=== PATIENT | female | born 1945 | race Caucasian/White ===

== ENCOUNTER 2017-04-06 06:23 | Day surgery (SDC) | payer OTHER ==
[2017-03-09 10:01] VITALS: BMI 21.0
--- NOTE | 2017-03-09 10:58 | PAT Medication Instructions ---
Service Date Mar 09, 2017. Current Home Medication List Acetaminophen (Tylenol), 1 TAB PO Q8 PRN for Pain or Fever Aluminum Hydroxide-Mag Trisil (Gaviscon), 1 TAB PO DAILY PRN for Heartburn Amlodipine Besylate-Atorvastat (Amlodipine Besylate/Atorv), 1 TAB PO QAM Aspirin (Aspirin Ec), 81 MG PO QAM Cholecalciferol (Vitamin D3), 1 TAB PO QAM Glyburide (Diabeta), 1 TAB PO QAM Hydrochlorothiazide (Hctz), 1 TAB PO QAM Loratadine (Claritin), 10 MG PO DAILY PRN for allergies Losartan Potassium (Cozaar), 50 MG PO QAM Metformin Hcl (Glucophage), 500 MG PO BID Multivitamin (Multivitamin), 1 TAB PO QAM Nitroglycerin (Nitrostat), 0.4 MG UT PRN PRN for Chest Pain Zolpidem Tartrate (Zolpidem Tartrate), 1 TAB PO HS Medication Instructions For Your Scheduled Surgery -Continue as directed: Nitroglycerin (Nitrostat), 0.4 MG UT PRN PRN for Chest Pain - Hold the following medications 48 hours prior to surgery: Metformin Hcl (Glucophage), 500 MG PO BID - Hold the following medications the morning of surgery: Multivitamin (Multivitamin), 1 TAB PO QAM Cholecalciferol (Vitamin D3), 1 TAB PO QAM Glyburide (Diabeta), 1 TAB PO QAM Hydrochlorothiazide (Hctz), 1 TAB PO QAM Loratadine (Claritin), 10 MG PO DAILY PRN for allergies Losartan Potassium (Cozaar), 50 MG PO QAM Aluminum Hydroxide-Mag Trisil (Gaviscon), 1 TAB PO DAILY PRN for Heartburn - Take the following medications the morning of surgery with a sip of water: Amlodipine Besylate-Atorvastat (Amlodipine Besylate/Atorv), 1 TAB PO QAM Aspirin (Aspirin Ec), 81 MG PO QAM Acetaminophen (Tylenol), 1 TAB PO Q8 PRN for Pain or Fever (if needed, can be taken up to four hours before surgery) - Take the following medications as scheduled the night before surgery: Zolpidem Tartrate (Zolpidem Tartrate), 1 TAB PO HS Loratadine (Claritin), 10 MG PO DAILY PRN for allergies (if needed) Aluminum Hydroxide-Mag Trisil (Gaviscon), 1 TAB PO DAILY PRN for Heartburn (if needed) Acetaminophen (Tylenol), 1 TAB PO Q8 PRN for Pain or Fever (if needed) If you have any questions please call us at [phone] or [phone] or [phone]
--- NOTE | 2017-03-09 11:53 | DIAGNOSTIC IMAGING REPORT ---
CHEST 2 VIEWS ROUTINE CLINICAL HISTORY: PAT preoperative evaluation COMPARISON STUDY: No previous studies for comparison. FINDINGS: The bones soft tissues and hemidiaphragms are normal. The cardiomediastinal silhouette is normal. The lungs are clear. The pulmonary vasculature is normal. IMPRESSION: Negative chest. The above report was generated using voice recognition software. It may contain grammatical, syntax or spelling errors. Electronically signed by: Agus Milan M.D. 03/09/2017 11:52 AM Dictated Date/Time: 03/09/2017 11:52 AM
[2017-03-09 11:55] LABS: BASO % 0.4 %; BASO ABS # 0.04 K/uL (0-0.2); EOS % 1.8 %; EOS ABS # 0.18 K/uL (0-0.5); HEMATOCRIT 31.2 % (37-47); HEMOGLOBIN 10.2 g/dL (12.0-16.0); IG# 0.02 K/uL (0.00-0.02); LYMPH ABS # 1.83 K/uL (1.2-3.4); MEAN CELL VOLUME 88.9 fL (80-100); MEAN CORPUSCULAR HEMOGLOBIN 29.1 pg (25-34); MEAN CORPUSCULAR HGB CONC 32.7 g/dl (32-36); MEAN PLATELET VOLUME 9.4 fL (7.4-10.4); MONO % 7.4 %; MONO ABS # 0.75 K/uL (0.11-0.59); NEUT % 72.2 %; NEUT ABS # 7.33 K/uL (1.4-6.5); PLATELET COUNT 276 K/uL (130-400); RED CELL DISTRIBUTION WIDTH CV 13.4 % (11.5-14.5); RED CELL DISTRIBUTION WIDTH SD 43.7 fL (36.4-46.3); WHITE BLOOD COUNT 10.15 K/uL (4.8-10.8)
[2017-03-09 12:04] LABS: CALCIUM 9.5 mg/dl (8.5-10.1); CREATININE 0.92 mg/dl (0.60-1.20); POTASSIUM 3.7 mmol/L (3.5-5.1)
--- NOTE | 2017-04-04 21:29 | History and Physical ---
History & Physical Date Apr 04, 2017. Chief Complaint Right shoulder pain History of Present Illness The patient is a 72 year old female with complaints of right shoulder pain. She had a new MRI that demonstrated a re-tear of her rotator cuff. She will be scheduled for a Right shoulder revision rotator cuff repair. Past Medical/Surgical History PMHx: Hypertension, Type II diabetes, kidney stones, breast cancer, uterus cancer, colon cancer PSHx: hysterectomy, lumpectomy x5, cholecystectomy, tonsillectomy Additional History Hepatic Disease: No Endocrine Disorder: Yes Kidney Disease: No Hypertension: Yes Heart Disease: No Bleeding Tendencies: No Infectious Diseases: No Allergies Coded Allergies: Ramelteon (Verified Allergy, Unknown, hives, throat problem, 03/09/17) Gabapentin (Verified Adverse Reaction, Unknown, dry mouth, dizzy, 03/09/17) Uncoded Allergies: GELATIN CAPS (Allergy, Unknown, hives, 03/09/17) AMLIDOPINE (Adverse Reaction, Unknown, foot cramps, 03/09/17) TRAZADONE (Adverse Reaction, Unknown, dizzt and nausea, 03/09/17) Home Medications Scheduled Amlodipine Besylate-Atorvastat (Amlodipine Besylate/Atorv), 1 TAB PO QAM Aspirin (Aspirin Ec), 81 MG PO QAM Cholecalciferol (Vitamin D3), 1 TAB PO QAM Glyburide (Diabeta), 1 TAB PO QAM Hydrochlorothiazide (Hctz), 1 TAB PO QAM Losartan Potassium (Cozaar), 50 MG PO QAM Metformin Hcl (Glucophage), 500 MG PO BID Multivitamin (Multivitamin), 1 TAB PO QAM Zolpidem Tartrate (Zolpidem Tartrate), 1 TAB PO HS Scheduled PRN Acetaminophen (Tylenol), 1 TAB PO Q8 PRN for Pain or Fever Aluminum Hydroxide-Mag Trisil (Gaviscon), 1 TAB PO DAILY PRN for Heartburn Loratadine (Claritin), 10 MG PO DAILY PRN for allergies Nitroglycerin (Nitrostat), 0.4 MG UT PRN PRN for Chest Pain Physical Examination Skin: warm/dry, no rash Eyes: normal inspection, EOMI ENT: normal ENT inspection Head: normocephalic, atraumatic Neck: supple, no adenopathy Respiratory/Chest: lungs clear, normal breath sounds Cardiovascular: regular rate, rhythm, no murmur Abdomen / GI: normal bowel sounds, non tender Extremities: + pertinent finding (decreased ROM and strength of her right shoulder. Positive empty can test. ) Neurologic/Psych: no motor/sensory deficits, alert, oriented x 3 Diagnosis Right shoulder rotator cuff tear Plan of Treatment Patient is rescheduled for a Right shoulder revision rotator cuff repair. She has failed conservative measures. She would like to proceed with scheduled surgery. Risks and benefits were discussed with the patient and she understands the risks and wishes to proceed all questions were answered to her satisfaction.
[~2017-04-06] VITALS: Ht 149.9 cm; Wt 47.3 kg
[~2017-04-06 06:23] MED LIST: ACET-1256 PO; ALUMCHW2 PO; AMLO-272 PO; ASPI81TA28 PO; CEFAZOLIN 1000MG IV PUSH 5 ML IV SCH; CHOL1000 PO; CLR10 PO; GLC/500 PO; GLYB2.5T7 PO; HYDR25TA4 PO; LACTATED RINGER'S 1000ML 1,000 ML IV SCH; LOSA50TA6 PO; MULT-506 PO; NTRGSL/4 UT; ZOLP5TAB6 PO
[2017-04-06] MEDS ORDERED: ROPIVACAINE 0.5% 5 MG/ML 30 ML VIAL ONE (06:39)
[2017-04-06 06:50] VITALS: BP 129/52; PULSE 63; TEMP 36.4; O2SAT 100; Ht 149.9 cm; Wt 47.3 kg
--- NOTE | 2017-04-06 07:44 | History & Physical Bridge Note ---
H&P Re-Evaluation Bridge Note: I have examined the patient, reviewed the History & Physical and in the interval since the performance of the History & Physical I have noted the following changes of clinical significance: No changes noted
[2017-04-06] MEDS ORDERED: FENTANYL CITRATE INJ 50 MCG/1 ML 2 ML VIAL ONE ×2 (07:45→08:55)
[2017-04-06] MEDS ORDERED: MIDAZOLAM HCL 1 MG/ML 2ML VIAL ONE (07:45)
[2017-04-06] MEDS ORDERED: EpINEphrine HCL INJ 1 MG/ML 5ML SYRINGE ONE ×2 (08:09→08:11)
[2017-04-06] MEDS ORDERED: ONDANSETRON INJ 2 MG/ML 2 ML VIAL IV PRN ×2 (08:15→10:00)
[2017-04-06] MEDS ORDERED: FENTANYL CITRATE INJ 50 MCG/1 ML 2 ML VIAL IV PRN (08:15)
[2017-04-06] MEDS ORDERED: ATROPINE SULFATE 0.1 MG/ML 5ML SYR IV PRN (08:15)
[2017-04-06] MEDS ORDERED: EpHEDrine SULFATE INJ 50 MG/ML AMP IV PRN (08:15)
[2017-04-06] MEDS ORDERED: LIDOCAINE/EPINEPHRINE 1% 20 ML VIAL ONE (08:17)
[2017-04-06] MEDS ORDERED: PROPOFOL IV EMULSION 10 MG/ML 20 ML VIAL IV ONE (09:33)
[2017-04-06] MEDS ORDERED: SUCCINYLCHOLINE CHLORIDE 20 MG/ML 10 ML VIAL IV ONE (09:33)
[2017-04-06] MEDS ORDERED: DEXAMETHASONE SOD INJ 4 MG/ML VIAL ONE (09:33)
[2017-04-06] MEDS ORDERED: EpHEDrine SULFATE 50MG/5ML SYR ONE (09:33)
[2017-04-06] MEDS ORDERED: ONDANSETRON INJ 2 MG/ML 2 ML VIAL ONE (09:33)
--- NOTE | 2017-04-06 09:34 | [facility] Post Operative Brief Note ---
Immediate Operative Summary Operative Date Apr 06, 2017. Pre-Operative Diagnosis Right Shoulder Rotator Cuff Tear Post-Operative Diagnosis Right Shoulder Rotator Cuff Tear Procedure(s) Performed Right Shoulder Arthroscopic Revision of Rotator Cuff Repair Surgeon Dr. Ghotra Land Clearer Surgeon(s) SHILOH Elena Estimated Blood Loss 2cc Findings as above Specimens none per surgeon Drains 0 Anesthesia geta Complication(s) None Disposition Recovery Room / PACU
--- NOTE | 2017-04-06 09:46 | [facility] Operative Report ---
Operative Report Operative Date Apr 06, 2017. Pre-Operative Diagnosis Right Shoulder Rotator Cuff reTear Post-Operative Diagnosis Right Shoulder Rotator Cuff reTear Procedure(s) Performed Right Shoulder Arthroscopic Revision of Rotator Cuff Repair Surgeon Dr. Ghotra Billboard Installer Surgeon(s) SHILOH Elena Estimated Blood Loss 2cc Findings as above Specimens none per surgeon Drains 0 Anesthesia geta Complication(s) None Disposition Recovery Room / PACU Indications The patient is a 72-year-old female who previously undergone arthroscopic rotator cuff repair. She had done well postoperatively and had a new injury. MRI demonstrated a return rotator cuff. She is still conservative measures and wishes to proceed with revision repair. Description of Procedure The MRI demonstrated a full-thickness rotator cuff tear. We discussed various treatment measures. The patient wished to proceed with arthroscopic repair. Risks, benefits and alternatives to surgery including, but not limited to, infection DVT, pain, stiffness, need for revision surgery, failure to relieve all symptoms, damage to blood vessels, damage to nerves, risk of anesthesia were discussed with the patient and they wished to proceed. The patient was identified. Laterality was confirmed and marked. The patient received a preoperative antibiotic as well as an interscalene block. They were transferred to the operating room and placed in the supine position and induced into general endotracheal anesthesia per the anesthesia staff. The patient was then safely transferred to the lateral decubitus position, secured by a beanbag. An axillary roll was placed. All pressure points were well-padded. The limb was placed in 10 pounds of lateral traction and then prepped and draped in the usual standard manner with ChloraPrep. The portal sites were anesthetized with 2% lidocaine with epinephrine. I made a standard posterior viewing portal made through a stab incision and then bluntly entered the glenohumeral joint. Then under spinal needle localization, I establish an anterior superolateral portal. The patient had a full-thickness rotator cuff re-tear through the supraspinatus extending into the infraspinatus. The cartilage of the humeral head and glenoid was relatively normal. The subscapularis was normal. I then removed the instrumentation from the joint and entered the subacromial space and established a lateral portal. There was a full-thickness rotator cuff tear that measured about 2 cm in diameter. I debrided out her previous suture material with a 5.5 mm shaver. I debrided the footprint with a shaver to establish a good bleeding response. Through a stab incision I placed a 5.5 mm HEALICOIL suture anchor. I passed the ultra braid sutures in a horizontal mattress with a fast passive scorpion. I then passed the ultra tape with a shuttling suture. I repeated this process for a posterior medial anchor. I tied the ULTRABRAID sutures with sliding Prowers knots reinforced for 3 half hitches on alternating posts. I then took 1 ULTRABRAID suture from each anchor I placed them in a 5.5 mm Multifix S suture anchor. I placed one anterolaterally. I then repeated this process another suture anchor posterolaterally, completing my double row construct. Portal sites were closed with nylon. A sterile dressing was applied and a sling placed. All needle and sponge counts were correct at the end of the procedure. The patient was transferred to the PACU in stable condition without apparent complication. No physical therapy for 6 weeks secondary to revision procedure. The PA-C was necessary for assistance with procedure for assistance in positioning, prepping, draping, retraction and closure. I attest to the content of the Intraoperative Record and any orders documented therein. Any exceptions are noted below.
[2017-04-06] MEDS ORDERED: SODIUM CHLORIDE 0.9% 1000ML 1,000 ML IV SCH (09:51)
[2017-04-06] MEDS ORDERED: OXYC-57 PO (09:53)
--- NOTE | 2017-04-06 09:56 | Discharge Instructions ---
Discharge Instructions Date of Service Apr 06, 2017. Admission Reason for Admission: Right Shoulder Unspecified Rtc Tear Or Rupture Discharge Discharge Diagnosis / Problem: S/P Right shoulder revision rotator cuff repair Discharge Goals Goal(s): Decrease discomfort, Improve function Activity Recommendations Activity Limitations: per Instructions/Follow-up section . Instructions / Follow-Up Instructions / Follow-Up U DISCHARGE INSTRUCTIONS: ROTATOR CUFF REPAIR SELF CARE INSTRUCTIONS A. You are permitted to loosen your sling/immobilizer to move your elbow, wrist , and hand to prevent stiffness. You should use your well arm (good arm) to assist the operated extremity when trying to raise the arm away from the body, hygiene purposes. Do NOT actively try to use/engage your shoulder muscles in operative arm at this time. You should NOT do overhead activity, lifting, or attempt to reach behind your back. B. NO PHYSICAL THERAPY FOR 6 WEEKS!! C. At 48 hours post-operatively, you may change your dressing. Use band-aids and change daily. You are allowed to shower at this time and get the incision area wet, but DO NOT soak or submerge incision area in water. (No baths, swimming pools, hot tubs) D. Do NOT apply soap or any ointment/lotions directly over incision. E. You may use ice as needed to operative shoulder SPECIAL CARE INSTRUCTIONS: VERY IMPORTANT TO READ AND REVIEW A. There are a few signs you need to watch for after you are home. Call [facility] at [phone] if you experience any of the following: a. Increased severe shoulder pain. Some pain is expected especially when you exercise b. Increased swelling in your shoulder or arm; pain or swelling in either upper extremity. (Note: swelling and stiffness is normal and expected for several weeks post op, depending on type of shoulder surgery you had). c. Any fluid or drainage from the incision; redness of the incision. d. Shortness of breath or chest pain. B. Please call [facility] at [phone] if you have any questions or concerns about your operation or recovery. C. Call your physician if: a. Temperature is greater than 101 degrees (F). b. Pain is not relieved by prescribed pain medications. c. Increase drainage or redness from incision. d. Unanswered questions or concerns. D. Pain Medication: a. You will be prescribed pain medication upon discharge that should last till your first post-operative appointment. b. If you experience nausea and/or skin rash, discontinue this medication and contact our office for an alternative medication. c. Caution- narcotic pain medication can cause constipation. FOLLOW UP VISIT: Please call [facility] at [phone] to schedule a follow up appointment 10-14 days from your surgery date. Current Hospital Diet Patient's current hospital diet: Discharge Diet Recommended Diet: Regular Diet Procedures Procedures Performed: Right Shoulder Arthroscopic Revision of Rotator Cuff Repair Pending Studies Studies pending at discharge: no Medical Emergencies . Who to Call and When: Medical Emergencies: If at any time you feel your situation is an emergency, please call 911 immediately. . Non-Emergent Contact Non-Emergency issues call your: Surgeon Call Non-Emergent contact if: temperature is above 101.5, your pain is worsening, wound has increased drainage, wound has increased redness . "Provider Documentation" section prepared by Jefry Hammond. . VTE Core Measure Inpt VTE Proph given/why not?: Treatment not indicated [place] Drug Monitoring Program Search Results: patient reviewed within database, no issues identified
[2017-04-06] MEDS ORDERED: OXYCODONE/ACETAMINOPHEN 5-325 TAB PO PRN ×2 (10:00)
--- NOTE | 2017-04-06 10:27 | Anesthesiology Progress Note ---
Anesthesia Post Op Note Date & Time Apr 06, 2017 at 10:27 Vital Signs Pain Intensity: 0 Vital Signs Past 12 Hours Date Time Temp Pulse Resp B/P (MAP) Pulse Ox O2 Delivery O2 Flow Rate FiO2 04/06/17 10:20 36.4 88 16 138/51 96 Room Air 04/06/17 10:10 89 12 130/52 100 Oxymask 10 04/06/17 10:00 83 12 125/55 100 Oxymask 10 04/06/17 09:50 36.3 81 12 140/60 100 Oxymask 10 04/06/17 06:50 36.4 63 18 129/52 (77) 100 Room Air Notes Mental Status: alert / awake / arousable, participated in evaluation Pt Amnestic to Procedure: Yes Nausea / Vomiting: adequately controlled Pain: adequately controlled Airway Patency, RR, SpO2: stable & adequate BP & HR: stable & adequate Hydration State: stable & adequate Anesthetic Complications: no major complications apparent
[2017-04-06 10:35] VITALS: BP 134/71; PULSE 84; TEMP 36.2; O2SAT 98
[2017-04-06 11:05] VITALS: BP 124/56; PULSE 83; TEMP 36.2; O2SAT 100
[2017-04-06] MEDS ORDERED: OXYCODONE/ACETAMINOPHEN 5-325 TAB ONE (11:13)
[2017-04-06 11:38] VITALS: BP 121/64; PULSE 78; O2SAT 98
[2017-04-06 12:05] VITALS: BP 127/51; PULSE 86; TEMP 36.4; O2SAT 98
== END 2017-04-06 12:35 | disposition home or self-care (01) ==
LOC: C.ACU 06:23
PROVIDERS: ATTEND Orthopaedic Surgery
DX: M75.101 Unspecified rotator cuff tear or rupture of right shoulder, not specified as traumatic (principal); I12.9 Hypertensive chronic kidney disease with stage 1 through stage 4 chronic kidney disease, or unspecified chronic kidney disease; I25.10 Atherosclerotic heart disease of native coronary artery without angina pectoris; K50.90 Crohn's disease, unspecified, without complications; N18.3 Chronic kidney disease, stage 3 (moderate); E11.9 Type 2 diabetes mellitus without complications; Z86.73 Personal history of transient ischemic attack (TIA), and cerebral infarction without residual deficits; Z87.442 Personal history of urinary calculi; Z85.3 Personal history of malignant neoplasm of breast; Z85.038 Personal history of other malignant neoplasm of large intestine; Z90.49 Acquired absence of other specified parts of digestive tract; Z79.82 Long term (current) use of aspirin